=== PATIENT | female | born 1975 | race Caucasian/White ===

== ENCOUNTER → 2020-10-28 10:06 | Outpatient (CLI) | payer OTHER, SELFPAY | PROVIDERS: PCP Family Medicine; Referring Provider Family Medicine; Visit Provider Family Medicine | DX: R05 Cough (principal) | CPT/HCPCS: 87635; C9803; U0005; U0003 ==

== ENCOUNTER 2022-05-27 21:29 | Emergency (ER) | payer OTHER, SELFPAY ==
[2022-05-27 21:30] VITALS: BP 151/94; PULSE 91; RESP 18; TEMP 37.1; O2SAT 96; BMI 34.9
--- NOTE | 2022-05-27 22:32 | EX.ED.DYSGE1 ---
HPI History of Present Illness Chief Complaint: General Illness Narrative Narrative: 46-year-old female presenting with right-sided breast mass. She states she noticed it on . She states it is larger. She was seen by her primary care physician who put her on amoxicillin and treated it as mastitis. The patient states that she was told that if it gets larger to come to the emergency room for IV antibiotics. She was also told that we may need to drain this. Patient does not feel systemically ill. She has no history of breast mass or breast cancer. She is not had any injury to cause pain. [facility] Medical History Diabetes Hypertension Home Medications apple cider vinegar 300 mg tablet mg PO 05/27/22 [History Last Taken Unknown] ascorbic acid (vitamin C) 25 mg tablet mg PO 05/27/22 [History Last Taken Unknown] cholecalciferol (vitamin D3) 25 mcg (1,000 unit) tablet (Vitamin D3) 25 mcg PO DAILY 05/27/22 [History Last Taken Unknown] dapagliflozin 10 mg tablet (Farxiga) 1 tab PO DAILY 05/27/22 [History Last Taken Unknown] glimepiride 2 mg tablet 1 tab PO BID 05/27/22 [History Last Taken Unknown] lactobacillus combination no.4 3 billion cell capsule (Probiotic) 3,000 mmu cells PO DAILY 05/27/22 [History Last Taken Unknown] losartan 50 mg tablet 1 tab PO DAILY 05/27/22 [History Last Taken Unknown] metformin 1,000 mg tablet 1 tab PO BID 05/27/22 [History Last Taken Unknown] metoprolol tartrate 50 mg tablet 1 tab PO BID 05/27/22 [History Last Taken Unknown] montelukast 10 mg tablet (Singulair) 1 tab PO DAILY 05/27/22 [History Last Taken Unknown] vitamin B complex 1 cap PO DAILY 05/27/22 [History Last Taken Unknown] zinc 10 mg tablet 10 mg PO DAILY 05/27/22 [History Last Taken Unknown] Allergy/AdvReac Type Severity Reaction Status Date / Time celecoxib [From Celebrex] Allergy Hives Verified 05/27/22 21:34 etodolac Allergy Hives Verified 05/27/22 21:34 latex Allergy Other Verified 05/27/22 21:34 Social History Smoking Status: Never smoker ROS ROS ED Constitutional Constitutional ED: Denies chills or fever(s) Eyes Eyes: Denies change in vision or diplopia ENT ENT ED: Denies rhinorrhea or sore throat Cardiovascular Cardiovascular: Denies chest pain or palpitations Respiratory/Chest Respiratory/Chest: Denies cough or dyspnea Gastrointestinal Gastrointestinal: Denies abdominal pain or constipation Genitourinary Genitourinary ED: Denies dysuria or hematuria Musculoskeletal Musculoskeletal: Denies arthralgias Integumentary Reports other Details: Redness and swelling of right breast laterally Neurologic Neurologic: Denies headache(s) Psychiatric Psychiatric: Denies anxiety or depression EXAM Physical Exam Const Vital Signs: 05/27/22 21:30 05/27/22 21:58 Temperature 98.7 F Temperature Source Temporal Pulse Rate 91 Respiratory Rate 18 Respiratory Effort Normal Non-Labored Respiratory Pattern Normal Blood Pressure 151/94 H Blood Pressure Mean 113 Pulse Ox 96 Oxygen Delivery Method Room Air Positive well nourished General Appearance ED: NAD; Negative for pallor HEENT Reports moist mucous membranes Eyes PERRL and EOMs intact bilaterally Chest Wall Chest Narrative: Redness overlying the right lateral aspect of the breast and there is a golf ball size circular firm mass noted. It is not fluctuant. I do not appreciate any other lymphadenopathy. The nipple is not inverted. Resp normal respiratory effort Cardio regular rate and regular rhythm GI normal to inspection, nondistended, normoactive bowel sounds Auscultation: normoactive bowel sounds Neuro oriented x3 and CN's II-XII intact bilaterally Sensorium / Orientation: alert Psych mental status grossly normal Skin Skin Narrative: As documented above General Skin Exam: Negative for jaundice or pallor MDM MDM MDM Narrative Medical decision making narrative: Patient with golf ball sized breast mass in the lateral aspect of the left breast. I suspect this is a lymph node. I do not appreciate any other lymphadenopathy. Her nipples are inverted. There is no drainage. He is not systemically ill either. I do not believe she needs to have this drained. I recommended to her that she get a mammogram which was ordered for her already late in May. Since she does not have any way to get this faster I did refer her to the [facility] fast pass in order to get her seen sooner. She was amenable to this. Patient discharged in stable condition. Impression: 1. Right breast mass 2. Mastitis Discharge Plan Triage Chief Complaint: General Illness ED Provider: Carlitos Stanley Dx/Rx/DC Orders Instructions: ED Breast Lump, Uncertain Cause Prescriptions: No Action losartan 50 mg tablet 1 tab PO DAILY glimepiride 2 mg tablet 1 tab PO BID metformin 1,000 mg tablet 1 tab PO BID metoprolol tartrate 50 mg tablet 1 tab PO BID montelukast [Singulair] 10 mg tablet 1 tab PO DAILY vitamin B complex [B Complex] Capsule 1 cap PO DAILY zinc 10 mg Tablet 10 mg PO DAILY Vitamin C 25 mg Tablet PO cholecalciferol (vitamin D3) [Vitamin D3] 25 mcg (1,000 unit) Tablet 25 mcg PO DAILY apple cider vinegar 300 mg Tablet PO Probiotic 3 billion cell Capsule 3,000 mmu cells PO DAILY Rx Instructions: administer with a meal Farxiga 10 mg tablet 1 tab PO DAILY Other Ambulatory Orders: Fast Pass: Oncology Referral [facility] (Routine) Facility: [facility] - Location: [facility] Ordered By: Dr. Carlitos Stanley Primary Care Provider: Norberto Medel Referrals: Norberto Medel MD [Primary Care Provider] - Disposition Disposition: Home, Self Care
[2022-05-27 22:53] VITALS: RESP 18
== END 2022-05-27 22:53 | disposition home or self-care (01) ==
PROVIDERS: Emergency Provider Student in an Organized Health Care Education/Training Program; PCP Family Medicine; Visit Provider Student in an Organized Health Care Education/Training Program
DX: N61.0 Mastitis without abscess (principal); E11.9 Type 2 diabetes mellitus without complications; N63.10 Unspecified lump in the right breast, unspecified quadrant; I10 Essential (primary) hypertension
CPT/HCPCS: 99282

== ENCOUNTER → 2022-06-02 | Outpatient (CLI) | payer OTHER, SELFPAY ==
--- NOTE | 2022-06-02 09:45 | BI_ITS ---
MAMMOGRAPHY - BILATERAL DIAGNOSTIC REASON FOR EXAM: Female, 46 years old. Patient has palpable mass upper breast that started on May 22 with additional lump felt 5 days later. Patient was evaluated in the ER on 05/25/2022 for pain and has been on antibiotic therapy since. PERTINENT HISTORY: Non-contributory. TECHNIQUE: Digital bilateral breast delicia (3D mammographic acquisition) in the CC and MLO projections. 2-D mediolateral oblique (MLO) and craniocaudad (CC) views of both breasts were obtained. CAD: Full Field Digital Mammography with Computer Added Detection was performed. COMPARISON: Screening mammogram from 08/13/2020 FINDINGS: Breast Composition: There are scattered areas of fibroglandular density. There is a new area of architectural distortion in the right upper outer breast posterior depth. There is associated overlying skin thickening. No definite mass is identified. No suspicious calcifications. This corresponds to the palpable area of concern and warrants further assessment with ultrasound. No other significant abnormalities are identified. Benign-appearing bilateral axillary lymph nodes. BI/DIAG MAMM W/CAD, BILAT IMPRESSION: Further ultrasonographic evaluation recommended, as described above. (I) ASSESSMENT CATEGORY: BIRADS Category 0: Incomplete. Need additional imaging evaluation. A letter regarding these results will be sent to the patient by the facility within 30 days. Final BIRADS category and recommendations are dictated on corresponding diagnostic ultrasound. Approximately 10% of breast cancers are not detected by mammography. A normal mammogram should not delay biopsy of a clinically suspicious abnormality. Electronically Signed: Maicol Campbell, at 16:40 EDT ,
--- NOTE | 2022-06-02 10:24 | US_ITS ---
STUDY: ULTRASOUND BREAST - RIGHT REASON FOR EXAM: Female, 46 years old. Palpable lump in the right breast. Patient has palpable mass in the upper breast that started on May 22 with additional lump felt 5 days later. Patient was evaluated in the ER on 05/25/2022 for pain and has been on antibiotic therapy since. TECHNIQUE: Axial and longitudinal images of the RIGHT breast were performed with a high resolution ultrasound transducer. # OF IMAGES: 26 COMPARISON: None. FINDINGS: RIGHT Breast: Palpable area 1: The area of clinical concern at the 11 o''clock position was assessed with ultrasound. There is a lesion in the right upper outer quadrant. The lesion measures 1.5 cm in size. Clock notation: 11 o''clock position. Distance from nipple: 12 cm. Posterior Enhancement: Yes Posterior Shadowing: No Margins: Indistinct but smooth. Echogenicity: Anechoic. Compression effect on Shape: No change. Additional findings: There is surrounding soft tissue edema and skin thickening. The skin is visibly red and warm/hot to touch. Palpable area 2: The medial breast was assessed in the clinical area of concern. There is edematous tissue with no suspicious mass identified. No fluid collections. US/Breast Limited Unilateral IMPRESSION: Given short-term development and provided clinical history, findings are suggestive of abscess and reactive infectious/inflammatory changes as detailed above. Recommendation: Fine-needle aspiration is recommended of the lesion in the right upper outer quadrant. Continued short-term follow-up is recommended with ultrasound as clinically warranted. A follow-up formal diagnostic mammogram and ultrasound in 3 months is also recommended to assess resolution and to exclude developing mass/malignancy. ASSESSMENT CATEGORY: BIRADS Category 3: Probably Benign - Short-Interval Follow-up Suggested. A letter regarding these results will be sent to the patient by the facility within 30 days. Electronically Signed: Maicol Campbell, at 16:52 EDT ,
== END | disposition home or self-care (01) ==
PROVIDERS: PCP Family Medicine; Visit Provider Internal Medicine Hematology & Oncology
DX: N63.10 Unspecified lump in the right breast, unspecified quadrant (principal)
CPT/HCPCS: 76642; 77062; 77066; G0279

== ENCOUNTER → 2022-06-06 | Outpatient (CLI) | payer OTHER, SELFPAY ==
--- NOTE | 2022-06-05 | BRBX_PTH ---
PATIENT: RE RYAN LOC: [facility] U#:[id number] AGE/SX: 46/F ROOM: RE06/06/[address]: Dr. Ariella Briggs MD : 1975 BED: DIS: 06/06/2022 SPEC #: [id number] RECD: 06/06/22 09:59 STATUS: HEIDI REWatson #: [id number] LUIS: 06/05/22 00:[address]: Ariella Briggs DEPT: SURGICAL PATHOLOGY RECD BY: Leeann Jung ENTERED: 06/06/22 11:25 SP TYPE: BREAST BX OTHR DR: Dr. Norberto Medel MD Tissues: Right breast, NOS Procedures: Surgery Specimen Level IV HEADER OPERATION: Right breast biopsy PRE-OP DIAGNOSIS: Right beast mass TISSUE SUBMITTED: Right breast MICROSCOPIC DIAGNOSIS Right breast, core biopsy: Extensive acute and chronic inflammation and abscess formation. Negative for atypia or malignancy. See comment. COMMENT Specimen entirely consists of fibroadipose tissue, breast glandular and ductal tissue are not present. Correlation with clinical findings and appropriate follow up are necessary. MICROSCOPIC DESCRIPTION Slides are reviewed. GROSS DESCRIPTION Received in fixative is one container labeled with the patient name and designated right breast. The specimen consists of multiple elongated fragments of davila, yellow fibroadipose tissue measuring in aggregate 1.5 x 0.3 x 0.1 cm. The specimen is totally submitted in one cassette. / SJ:cc 06/06/22 TC:2 CPT:65908
== END | disposition home or self-care (01) ==
LOC: LABSPEC 10:26
PROVIDERS: PCP Family Medicine; Referring Provider Surgery; Visit Provider Surgery
DX: N63.10 Unspecified lump in the right breast, unspecified quadrant (principal)
CPT/HCPCS: 87070; 87075; 87077; 87186; 87205; 88305